=== PATIENT | male | born 1975 | race Caucasian/White ===

== ENCOUNTER 2024-04-23 16:50 | Emergency (ER) | payer OTHER ==
[~2024-04-23] VITALS: Ht 175.3 cm; Wt 77.3 kg
[2024-04-23 16:51] VITALS: TEMP 98.2
[2024-04-23] MEDS: ACETAMINOPHEN 500 MG TABLET PO ONE (17:45)
[2024-04-23] MEDS: PERTUSS(ACELL),DIPH,TET/PF 0.5 ML SYRINGE [ADULT] IM. ONE (17:46)
[2024-04-23 18:54] VITALS: BP 124/73; PULSE 68; RESP 18; O2SAT 99
== END 2024-04-23 19:01 | disposition home or self-care (01) ==
LOC: EMS 16:50
DX: S09.90XA Unspecified injury of head, initial encounter (principal); Z23 Encounter for immunization; W22.8XXA Striking against or struck by other objects, initial encounter; Y93.01 Activity, walking, marching and hiking; Y92.89 Other specified places as the place of occurrence of the external cause; Y99.8 Other external cause status
CPT/HCPCS: 70450; 90471; 90715; 99285